=== PATIENT | female | born 1940 | race Caucasian/White ===

== ENCOUNTER 2020-04-16 17:54 | Outpatient (CLI) | payer MEDICARE | END 2020-04-16 17:55 | disposition home or self-care (01) | LOC: LAB.S 17:54 | DX: E05.90 Thyrotoxicosis, unspecified without thyrotoxic crisis or storm (principal) | CPT/HCPCS: 36415; 84443 ==

== ENCOUNTER 2020-05-15 14:25 | Outpatient (CLI) | payer MEDICARE | END 2020-05-15 14:26 | disposition home or self-care (01) | LOC: LAB.S 14:25 | DX: E05.90 Thyrotoxicosis, unspecified without thyrotoxic crisis or storm (principal) | CPT/HCPCS: 36415; 84443 ==

== ENCOUNTER 2020-06-11 18:14 | Outpatient (CLI) | payer MEDICARE | END 2020-06-11 18:15 | disposition home or self-care (01) | LOC: LAB.S 18:14 | PROVIDERS: ATTEND Family Medicine | DX: E05.90 Thyrotoxicosis, unspecified without thyrotoxic crisis or storm (principal) | CPT/HCPCS: 36415; 84443 ==

== ENCOUNTER 2020-11-08 13:55 | Outpatient (CLI) | payer MEDICARE ==
--- NOTE | 2020-11-17 08:39 | CT Report ---
PROCEDURE: CHEST WO INDICATIONS: LUNG NODULE TECHNIQUE: Noncontrast 5 mm thick sections acquired from the pulmonary apices to the posterior costophrenic angl es. 7 mm thick coronal and sagittal MIP reformats were then acquired. For radiation dose reduction, the following was used: automated exposure control, adjustment of mA and/or kV according to patient size. COMPARISON: No prior comparison. A dictation is available from a CT chest performed on 12/21/2019 FINDINGS: Image quality: Excellent. Lungs and pleura: The right middle lobe has a 5 mm nodule laterally series 4 image 175. The right lo wer lobe has 2 adjacent subpleural nodules measuring 4 mm and 6 mm series 4 image 201 and 212. A 3 mm calcified granuloma in the anterior right upper lobe is unchanged and benign. By measurement, these correspond with the nodules described on the prior CT on 12/21/2019. No acute air space opacities. No pleural effusions or pneumothorax. Central and peripheral airways are patent and normal in caliber. Mediastinum: Heart size is normal. The coronary arteries have atherosclerotic calcifications. No pe ricardial effusion. No mediastinal adenopathy by size criteria. Thoracic aorta and central pulmonar y arteries are normal in size. The thoracic aorta has atherosclerotic calcifications. Esophagus is n ormal in caliber. No hiatal hernia. Bones and chest wall: There are multilevel degenerative changes of the thoracic spine. No suspicious bony lesions. No vertebral body compression fractures. No axillary or supraclavicular adenopathy b y size criteria. The thyroid is normal in size and there are no incidental findings. Abdomen: Visualized upper abdominal solid organs and bowel loops appear normal in the absence of con trast. IMPRESSION: 1. Nodules in the right middle lobe and right lower lobe are stable compared to prior CT report on 03/2020 demonstrating one year of stability. Recommend additional follow-up CT in 12 months and if th ere is continued stability no further follow-up is indicated. 2. No acute abnormality or other significant abnormality. Reviewed by: Kenroy Ma on 11/17/2020 8:37 AM PDT Approved by: Kenroy Ma on 11/17/2020 8:37 AM PDT Station ID: [id number]
== END 2020-11-08 13:56 | disposition home or self-care (01) ==
LOC: DI 13:55
PROVIDERS: ATTEND Family Medicine
DX: R91.8 Other nonspecific abnormal finding of lung field (principal)

== ENCOUNTER 2022-11-02 08:00 | Outpatient (CLI) | payer MEDICARE ==
[2022-11-02 16:17] LABS: BASOPHILS % (AUTO) 0.7 %; EOSINOPHILS % (AUTO) 3.2 %; HCT - HEMATOCRIT 30.3 % (37.0-47.0); HGB - HEMOGLOBIN 9.2 g/dL (12.0-16.0); LYMPHOCYTES % (AUTO) 21.7 %; MEAN CORPUSCULAR HEMOGLOBIN 28.4 pg (27.0-31.0); MEAN CORPUSCULAR HGB CONC 30.4 g/dL (32.0-36.0); MEAN CORPUSCULAR VOLUME 93.5 fL (81.0-99.0); MONOCYTES % (AUTO) 9.5 %; NEUTROPHILS % (AUTO) 64.6 %; PLT - PLATELET COUNT 295 10^3/uL (130-450); RED BLOOD COUNT 3.24 10^6/uL (4.20-5.40); RED CELL DISTRIBUTION WIDTH 15.4 % (12.0-15.0); WHITE BLOOD COUNT 9.4 x10^3/uL (4.8-10.8)
[2022-11-02 16:18] LABS: ABNORMAL LYMPHS % (MANUAL) 0 %; BAND NEUTROPHILS % (MANUAL) 0 %; SLIDE REVIEW? Indicated
[2022-11-02 17:19] LABS: DIFFERENTIAL COMMENT MANUAL DIFFERENTIAL; EOSINOPHILS # (MANUAL) 0.5 10^3/uL (0-0.7); LYMPHOCYTES # (MANUAL) 1.5 10^3/uL (1.5-3.5); LYMPHOCYTES % (MANUAL) 16 %; MONOCYTES # (MANUAL) 0.7 10^3/uL (0.0-1.0); NEUTROPHILS # (MANUAL) 6.8 10^3/uL (1.5-6.6); PLATELET ESTIMATE, MANUAL NORMAL (130-450,000) (NORMAL); PLATELET MORPHOLOGY NORMAL APPEARANCE (NORMAL)
[2022-11-02 21:10] LABS: ESTIMATED AVERAGE GLUCOSE 183 mg/dL (70-100)
== END 2022-11-02 23:59 | disposition home or self-care (01) ==
LOC: LAB.R 08:00
DX: E11.22 Type 2 diabetes mellitus with diabetic chronic kidney disease (principal); N18.31 Chronic kidney disease, stage 3a; D63.1 Anemia in chronic kidney disease
CPT/HCPCS: 83036; 85025

== ENCOUNTER 2022-11-15 09:24 | Outpatient (CLI) | payer MEDICARE | END 2022-11-15 09:25 | disposition critical access hospital (66) | LOC: EMS 09:24 | DX: N93.9 Abnormal uterine and vaginal bleeding, unspecified (principal); R30.0 Dysuria | CPT/HCPCS: A0425; A0429 ==

== ENCOUNTER 2022-11-15 09:52 | Emergency (ER) | payer MEDICARE ==
--- NOTE | 2022-11-15 10:13 | ED Physician Documentation ---
History of Present Illness - Stated complaint Stated Complaint: FEMALE - Chief complaint Chief Complaint: General - History obtained from History obtained from: Patient, Family - Additonal information Additional information: The patient comes to the emergency department chief complaint of vaginal bleeding and urinary frequency. The patient lives at home with her daughter and is bedbound and the daughter states she does diaper change and clean up for the patient. The patient states that she has had urinary frequency which is not necessarily unusual for her although she has been a little more frequent than she would normally be. The patient denies abdominal pain, nausea, vomiting, or fevers. She states her pelvic area feels "warm". She has not had chills or rigors. She has not noticed any dysuria. The daughter states that when she went to change the patient's depends this morning, she noticed some bloody residue in the urine. The patient on further examination was found to blood coming from her vagina. The daughter then noticed a clot pass and was concerned so had the patient brought here. The patient apparently had a similar episode a few years ago and no cause was found for the vaginal bleeding despite extensive work-up. The patient does have a strong family history of reproductive cancer amongst her mother and sisters, so this is a concern. No other complaints at t his time. Daughter has not been noticing any bleeding in preceding days. PD PAST MEDICAL HISTORY - Present Medications Home Medications: Ambulatory Orders Medication Instructions Recorded Confirmed Aspirin [Aspirin Regimen] 81 mg PO DAILY 11/15/22 11/15/22 Bumetanide [Bumex] 1 mg PO DAILY 11/15/22 11/15/22 Losartan [Cozaar] 50 mg PO DAILY 11/15/22 11/15/22 Metoprolol Succinate 100 mg PO DAILY 11/15/22 11/15/22 Nitroglycerin [Nitrostat] 0.4 mg PO DAILY 11/15/22 11/15/22 Rosuvastatin Calcium [Crestor] 40 mg PO DAILY 11/15/22 11/15/22 Sulfamethox/Trimeth 800/160 1 each PO BID #14 tablet 11/15/22 [Bactrim Ds 800/160] metFORMIN [Glucophage] 500 mg PO BIDWM 11/15/22 11/15/22 - Allergies Allergies/Adverse Reactions: Allergies Allergy/AdvReac Type Severity Reaction Status Date / Time lisinopril Allergy Unknown Verified 11/15/22 10:00 Penicillins Allergy Unknown Verified 11/15/22 10:00 PD ED PE NORMAL - Vitals Vital signs reviewed: Yes - General General: Alert and oriented X 3, No acute distress, Well developed/nourished (Obese) - HEENT HEENT: Atraumatic, PERRL, EOMI, Moist mucous membranes - Neck Neck: Supple, no meningeal sign - Cardiac Cardiac: RRR, No murmur - Respiratory Respiratory: No respiratory distress, Clear bilaterally - Abdomen Abdomen: Soft, Non tender, Other (Obese abdomen) - Female Female : Vamp Creaser present, Other (Normal female genitalia. Patient is noted to have a trickle of blood from her vagina. Digital exam reveals no palpable masses. A clot is expressed with removal of the fingers. Speculum exam not performed secondary to hip inflexibility) - Derm Derm: Warm and dry - Extremities Extremities: No deformity - Neuro Neuro: Alert and oriented X 3 - Psych Psych: Normal mood, Normal affect Results - Vitals Vitals: Vital Signs - 24 hr 11/15/22 11/15/22 11/15/22 09:56 10:15 11:12 Temperature 36.4 C L Heart Rate 97 94 90 Respiratory 22 20 20 Rate Blood Pressure 156/69 H 128/65 140/58 H O2 Saturation 97 99 98 11/15/22 13:00 Temperature 36.5 C Heart Rate 88 Respiratory 18 Rate Blood Pressure 130/60 O2 Saturation 98 Oxygen O2 Source Room air - Labs Labs: Laboratory Tests 11/15/22 11/15/22 11/15/22 10:13 10:19 10:19 WBC 9.6 RBC 3.17 L Hgb 9.4 L Hct 29.6 L MCV 93.4 MCH 29.7 MCHC 31.8 L RDW 15.8 H Plt Count 288 MPV 8.4 Neut # (Auto) 6.9 H Lymph # (Auto) 1.5 Lipscomb # (Auto) 0.8 Eos # (Auto) 0.3 Baso # (Auto) 0.1 Absolute Nucleated RBC 0.00 Nucleated RBC % 0.0 PT 11.3 INR 1.0 Sodium Potassium Chloride Carbon Dioxide Anion Gap BUN Creatinine Estimated GFR (MDRD) Glucose Calcium Total Bilirubin AST ALT Alkaline Phosphatase Total Protein Albumin Globulin Albumin/Globulin Ratio Lipase Urine Color YELLOW Urine Clarity SL. CLOUDY Urine pH 6.0 Ur Specific [place] 1.010 Urine Protein 30 H Urine Glucose (UA) NEGATIVE Urine Ketones NEGATIVE Urine Occult Blood LARGE H Urine Nitrite POSITIVE H Urine Bilirubin NEGATIVE Urine Urobilinogen 0.2 (NORMAL) Ur Leukocyte Esterase MODERATE H Urine RBC TNTC H Urine WBC 6-10 H Ur Squamous Epith Cells RARE Squamous Urine Bacteria Moderate H Ur Microscopic Review INDICATED Urine Culture Comments INDICATED 11/15/22 10:19 WBC RBC Hgb Hct MCV MCH MCHC RDW Plt Count MPV Neut # (Auto) Lymph # (Auto) Lipscomb # (Auto) Eos # (Auto) Baso # (Auto) Absolute Nucleated RBC Nucleated RBC % PT INR Sodium 139 Potassium 4.3 Chloride 108 Carbon Dioxide 23 Anion Gap 8.0 BUN 25 H Creatinine 1.1 H Estimated GFR (MDRD) 47 L Glucose 207 H Calcium 8.8 Total Bilirubin 0.5 AST 23 ALT 20 Alkaline Phosphatase 119 Total Protein 6.9 Albumin 2.8 L Globulin 4.1 Albumin/Globulin Ratio 0.7 L Lipase 47 Urine Color Urine Clarity Urine pH Ur Specific [place] Urine Protein Urine Glucose (UA) Urine Ketones Urine Occult Blood Urine Nitrite Urine Bilirubin Urine Urobilinogen Ur Leukocyte Esterase Urine RBC Urine WBC Ur Squamous Epith Cells Urine Bacteria Ur Microscopic Review Urine Culture Comments - Rads (name of study) CT abdomen and pelvis Relevant Findings:: Final report received, See rad report (No masses or other acute findings) PD Medical Decision Making - ED course Complexity details: reviewed results, re-evaluated patient, considered di fferential, d/w patient, d/w family ED course: The patient was worked up with labs, UA and ultimately CT scan of the abdomen and pelvis. UA was positive for infection. Labs showed a hemoglobin with mild anemia but higher than last month. CT scan did not show any masses or other concerning findings to indicate malignancy. I discussed with the family and the patient that I am not really sure why she is having vaginal bleeding, although this is not very heavy right now. I have encouraged them to follow-up with gynecology for further evaluation. We have discussed the usual indications for return. Departure - Departure Disposition: 01 Home, Self Care Clinical Impression: Vaginal bleeding UTI (urinary tract infection) Qualifiers: Urinary tract infection type: acute cystitis Hematuria presence: with hematuria Qualified Code(s): N30.01 - Acute cystitis with hematuria Condition: Stable Instructions: ED Bleed Irregular Vaginal, ED UTI Cystitis Female Prescriptions: Sulfamethox/Trimeth 800/160 [Bactrim Ds 800/160] 1 each PO BID #14 tablet Comments: The urinalysis shows a urinary tract infection. You have been started on antibiotics for this today. The CT scan does not show anything concerning in terms of the vaginal bleeding and it is not exactly clear why you are bleeding. No masses were palpable on examination either. 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 Please make the next possible appointment. Please also look into the ride options you have been given. Your prescription has been electronically transmitted to the [facility] pharmacy in [place]. Please pick that up this afternoon so you can get your next dose of antibiotics. Discharge Date/Time: 11/15/22 13:16
[2022-11-15 10:24] LABS: BASOPHILS # (AUTO) 0.1 10^3/uL (0.0-0.1); BASOPHILS % (AUTO) 0.6 %; EOSINOPHILS # (AUTO) 0.3 10^3/uL (0.0-0.7); EOSINOPHILS % (AUTO) 3.4 %; HCT - HEMATOCRIT 29.6 % (37.0-47.0); HGB - HEMOGLOBIN 9.4 g/dL (12.0-16.0); LYMPHOCYTES # (AUTO) 1.5 10^3/uL (1.5-3.5); LYMPHOCYTES % (AUTO) 15.7 %; MEAN CORPUSCULAR HEMOGLOBIN 29.7 pg (27.0-31.0); MEAN CORPUSCULAR HGB CONC 31.8 g/dL (32.0-36.0); MEAN CORPUSCULAR VOLUME 93.4 fL (81.0-99.0); MEAN PLATELET VOLUME 8.4 fL (7.9-10.8); MONOCYTES # (AUTO) 0.8 10^3/uL (0.0-1.0); NEUTROPHILS # (AUTO) 6.9 10^3/uL (1.5-6.6); NEUTROPHILS % (AUTO) 71.8 %; PLT - PLATELET COUNT 288 10^3/uL (130-450); RED BLOOD COUNT 3.17 10^6/uL (4.20-5.40); RED CELL DISTRIBUTION WIDTH 15.8 % (12.0-15.0); WHITE BLOOD COUNT 9.6 x10^3/uL (4.8-10.8)
[2022-11-15 10:28] LABS: BILIRUBIN,URINE NEGATIVE (NEGATIVE); GLUCOSE, URINE (UA) NEGATIVE (NEGATIVE); KETONES,URINE (UA) NEGATIVE (NEGATIVE); LEUKOCYTE ESTERASE, URINE MODERATE (NEGATIVE); NITRITE,URINE POSITIVE (NEGATIVE); OCCULT BLOOD,URINE LARGE (NEGATIVE); PROTEIN,URINE 30 mg/dL (NEGATIVE); UROBILINOGEN,URINE 0.2 (NORMAL) E.U./dL (NORMAL)
[2022-11-15 10:35] LABS: CLARITY,URINE SL. CLOUDY (CLEAR)
[2022-11-15 10:37] LABS: ALBUMIN 2.8 g/dL (3.2-5.5); ALBUMIN/GLOBULIN RATIO 0.7 (1.0-2.2); BILIRUBIN,TOTAL 0.5 mg/dL (0.2-1.0); CALCIUM 8.8 mg/dL (8.5-10.3); CREATININE 1.1 mg/dL (0.4-1.0); POTASSIUM 4.3 mmol/L (3.5-5.0); TOTAL PROTEIN 6.9 g/dL (6.7-8.2)
[2022-11-15 10:40] LABS: BACTERIA,URINE Moderate /HPF (None Seen); RBC,URINE TNTC /HPF (0-5); SQUAMOUS EPITHELIAL CELL,UR RARE Squamous (<= Few)
[2022-11-15 10:42] LABS: PT - PROTHROMBIN TIME 11.3 secs (9.9-12.6)
--- NOTE | 2022-11-15 12:01 | CT Report ---
PROCEDURE: ABDOMEN/PELVIS W INDICATIONS: vaginal bleeding, FH ovarian/uterine CA CONTRAST: 100ml Omni 350 TECHNIQUE: After the administration of intravenous contrast, 5 mm thick sections acquired from the diaphragms to the symphysis. 5 mm thick coronal and sagittal reformats were acquired. For radiation dose reducti on, the following was used: automated exposure control, adjustment of mA and/or kV according to aysha ent size. COMPARISON: None FINDINGS: Image quality: Excellent. Lung bases and heart: Unremarkable. Liver: Mild diffuse hepatic steatosis. No focal liver mass. Gallbladder and biliary tree: Calcified gallstones. No gallbladder wall thickening. Spleen: No splenomegaly. Pancreas: No pancreatic ductal dilation. Adrenals: No adrenal nodule. Kidneys and ureters: No hydronephrosis. No renal cystic lesion which requires follow up. No solid mas s. Bowel and peritoneum: No bowel distension. No pathologic free fluid. Lymph nodes: No central or retroperitoneal adenopathy. Vessels: No infrarenal aortic aneurysm. PELVIS Reproductive organs: Unremarkable. The endometrium of the uterus appears to be thickened on CT. No ad nexal masses. There is an old benign appearing left adnexal calcification. Bladder: No abnormal wall thickening, accounting for underdistension. Pelvic lymph nodes: No pelvic adenopathy by size criteria. Bones: No aggressive osseous abnormality. Lumbar degenerative changes. Other: No significant ventral or inguinal hernia. Posterior pelvic floor relaxation with inferior loc ation of the rectoanal junction. IMPRESSION: 1. No evidence acute abdominal process. 2. No findings are suspicious for gynecological malignancy. Thin endometrial stripe. 3. Posterior pelvic floor relaxation. Reviewed by: Nav Luna MD on 11/15/2022 11:59 AM PDT Approved by: Nav Luna MD on 11/15/2022 11:59 AM PDT Station ID: [id number]
[2022-11-15] MEDS ORDERED: SULFAMETH/TRIMETH DS 800/160 MG TABLET PO STA (12:06)
[2022-11-15 13:19] VITALS: BP 130/60
--- NOTE | 2022-11-18 12:51 | ED Physician Documentation ---
ED Addendum - Addendum Addendum: 11/18/22 12:50 Cultures reviewed, she is on Bactrim which the E. coli is sensitive to and a brief Internet search suggests that the second organism should be sensitive to as well. No changes.
== END 2022-11-15 13:16 | disposition home or self-care (01) ==
LOC: EDUNIT# → ED 09:52
DX: N30.01 Acute cystitis with hematuria (principal); B96.20 Unspecified Escherichia coli [E. coli] as the cause of diseases classified elsewhere; N93.9 Abnormal uterine and vaginal bleeding, unspecified
CPT/HCPCS: 36415; 51701; 74177; 80053; 81001; 83690; 85025; 85610; 87077; 87086; 87181; 99283; 99284; A9270; Q9967; 81003

== ENCOUNTER 2022-11-15 13:20 | Outpatient (CLI) | payer MEDICARE | END 2022-11-15 23:59 | disposition home or self-care (01) | LOC: EMS 13:20 | PROVIDERS: ATTEND Emergency Medicine | DX: N39.0 Urinary tract infection, site not specified (principal); Z74.01 Bed confinement status | CPT/HCPCS: A0425; A0428 ==

== ENCOUNTER 2022-11-21 23:26 | Outpatient (CLI) | payer MEDICARE | END 2022-11-21 23:59 | disposition critical access hospital (66) | LOC: EMS 23:26 | DX: R11.2 Nausea with vomiting, unspecified (principal); R19.7 Diarrhea, unspecified; R53.1 Weakness; Z74.01 Bed confinement status | CPT/HCPCS: A0425; A0429 ==

== ENCOUNTER 2022-11-21 23:53 | Emergency (ER) | payer MEDICARE ==
[2022-11-21] MEDS ORDERED: SODIUM CHLORIDE 0.9% 1,000 ML IV STA (23:58)
[2022-11-22 00:25] LABS: BASOPHILS % (AUTO) 0.3 %; EOSINOPHILS % (AUTO) 0.1 %; HCT - HEMATOCRIT 29.6 % (37.0-47.0); HGB - HEMOGLOBIN 8.2 g/dL (12.0-16.0); LYMPHOCYTES % (AUTO) 17.8 %; MEAN CORPUSCULAR HEMOGLOBIN 28.5 pg (27.0-31.0); MEAN CORPUSCULAR HGB CONC 27.7 g/dL (32.0-36.0); MEAN CORPUSCULAR VOLUME 102.8 fL (81.0-99.0); MEAN PLATELET VOLUME 8.6 fL (7.9-10.8); MONOCYTES % (AUTO) 7.1 %; NEUTROPHILS % (AUTO) 71.3 %; PLT - PLATELET COUNT 401 10^3/uL (130-450); RED BLOOD COUNT 2.88 10^6/uL (4.20-5.40); RED CELL DISTRIBUTION WIDTH 15.8 % (12.0-15.0); WHITE BLOOD COUNT 24.9 x10^3/uL (4.8-10.8)
[2022-11-22 00:29] LABS: BILIRUBIN,URINE NEGATIVE (NEGATIVE); GLUCOSE, URINE (UA) NEGATIVE (NEGATIVE); KETONES,URINE (UA) NEGATIVE (NEGATIVE); LEUKOCYTE ESTERASE, URINE NEGATIVE (NEGATIVE); NITRITE,URINE NEGATIVE (NEGATIVE); OCCULT BLOOD,URINE SMALL (NEGATIVE); PROTEIN,URINE 100 mg/dL (NEGATIVE); UROBILINOGEN,URINE 0.2 (NORMAL) E.U./dL (NORMAL)
[2022-11-22 00:30] LABS: CLARITY,URINE SL. CLOUDY (CLEAR)
[2022-11-22 00:30] LABS: ABNORMAL LYMPHS % (MANUAL) 0 %
[2022-11-22] MEDS ORDERED: PIPERACILLIN/TAZOBACTAM 3.375 GM in SODIUM CHLORIDE 0.9% MINIBAG 100 ML IV STA (00:37)
[2022-11-22 00:44] LABS: BACTERIA,URINE Rare /HPF (None Seen); RBC,URINE 0-5 /HPF (0-5); SQUAMOUS EPITHELIAL CELL,UR RARE Squamous (<= Few); WBC,URINE 0-3 /HPF (0-5)
[2022-11-22] MEDS ORDERED: iohexoL-300 100 ML VIAL ONE (00:44)
[2022-11-22 00:45] LABS: AMORPHOUS SEDIMENT,UR Moderate /LPF; CASTS, URINE 3-5 Course Granular /LPF
--- NOTE | 2022-11-22 00:49 | ED Physician Documentation ---
History of Present Illness - Stated complaint Stated Complaint: N/V/D - Chief complaint Chief Complaint: Abd Pain - History obtained from History obtained from: Patient, Family (daughter) - Additonal information Additional information: 82-year-old woman presented to the ED with nausea, vomiting and diarrhea for the past 2 days. Patient was seen on 11/15 for UTI and prescribed Bactrim. Patient is bedbound at baseline due to prior knee injury. She has a history of diabetes, cardiac stent at [facility] in 2009. further history limited by patient acuity Review of Systems Unable to obtain: Other (unable to obtain 2/2 patient acuity) PD PAST MEDICAL HISTORY - Present Medications Home Medications: Ambulatory Orders Medication Instructions Recorded Confirmed Aspirin [Aspirin Regimen] 81 mg PO DAILY 11/15/22 11/15/22 Bumetanide [Bumex] 1 mg PO DAILY 11/15/22 11/15/22 Losartan [Cozaar] 50 mg PO DAILY 11/15/22 11/15/22 Metoprolol Succinate 100 mg PO DAILY 11/15/22 11/15/22 Nitroglycerin [Nitrostat] 0.4 mg PO DAILY 11/15/22 11/15/22 Rosuvastatin Calcium [Crestor] 40 mg PO DAILY 11/15/22 11/15/22 Sulfamethox/Trimeth 800/160 1 each PO BID #14 tablet 11/15/22 [Bactrim Ds 800/160] metFORMIN [Glucophage] 500 mg PO BIDWM 11/15/22 11/15/22 - Allergies Allergies/Adverse Reactions: Allergies Allergy/AdvReac Type Severity Reaction Status Date / Time lisinopril Allergy Unknown Verified 11/15/22 10:00 Penicillins Allergy Unknown Verified 11/15/22 10:00 PD ED PE NORMAL - Vitals Vital signs reviewed: Yes - General General: Alert and oriented X 3, Other (uncomfortable appearing, visibly SOA) - HEENT HEENT: Atraumatic, PERRL, EOMI - Neck Neck: Supple, no meningeal sign - Cardiac Cardiac: RRR - Respiratory Respiratory: Other (BL diminished breath sounds) - Abdomen Abdomen: Non tender, Non distended - Derm Derm: Other (mottled extremities) Results - Vitals Vitals: Vital Signs - 24 hr 11/22/22 11/22/22 11/22/22 00:00 00:06 00:30 Temperature 36.4 C L Heart Rate 87 88 86 Respiratory 31 H 18 32 H Rate Blood Pressure 144/49 H 144/49 H 115/33 L O2 Saturation 95 If not protocol 2 : Oxygen Flow, liters/minute 11/22/22 11/22/22 11/22/22 00:41 01:00 01:13 Temperature Heart Rate 84 79 Respiratory 20 Rate Blood Pressure 123/38 L 123/38 L 102/76 O2 Saturation 100 100 If not protocol 84 : Oxygen Flow, liters/minute 11/22/22 11/22/22 11/22/22 01:55 02:24 02:29 Temperature Heart Rate 86 85 85 Respiratory 28 H 27 H 29 H Rate Blood Pressure 93/74 112/95 H O2 Saturation 100 100 If not protocol 6 15 15 : Oxygen Flow, liters/minute 11/22/22 11/22/22 11/22/22 02:41 02:47 02:52 Temperature Heart Rate 88 86 85 Respiratory 24 22 16 Rate Blood Pressure 76/31 L 75/30 L 60/40 L O2 Saturation 15 L 100 100 If not protocol : Oxygen Flow, liters/minute 11/22/22 11/22/22 11/22/22 02:57 03:05 03:11 Temperature Heart Rate 85 86 85 Respiratory 22 26 H 27 H Rate Blood Pressure 91/26 L 82/32 L 76/39 L O2 Saturation 97 95 95 If not protocol 5 5 : Oxygen Flow, liters/minute 11/22/22 11/22/22 11/22/22 03:39 04:00 04:09 Temperature Heart Rate 88 92 88 Respiratory 27 H 27 H 25 H Rate Blood Pressure 95/39 L 108/39 L 113/42 L O2 Saturation 97 97 97 If not protocol 5 5 5 : Oxygen Flow, liters/minute 11/22/22 11/22/22 11/22/22 04:30 05:00 05:30 Temperature Heart Rate 92 92 88 Respiratory 19 22 16 Rate Blood Pressure 121/46 L 119/46 L 105/41 L O2 Saturation 98 99 99 If not protocol 5 5 5 : Oxygen Flow, liters/minute 11/22/22 11/22/22 11/22/22 05:47 06:00 06:30 Temperature Heart Rate 87 88 75 Respiratory 15 20 23 Rate Blood Pressure 105/39 L 93/36 L 59/47 L O2 Saturation 100 100 95 If not protocol 5 5 5 : Oxygen Flow, liters/minute Oxygen O2 Source Nasal cannula - EKG (time done) 0028 EKG releavant findings:: EKG personally interpreted by author of this note. Relevant findings are: Rate: Rate (enter#) (84) Rhythm: NSR - Labs Labs: Laboratory Tests 11/22/22 11/22/22 11/22/22 00:08 00:08 00:08 WBC 24.9 H RBC 2.88 L Hgb 8.2 L Hct 29.6 L MCV 102.8 H MCH 28.5 MCHC 27.7 L RDW 15.8 H Plt Count 401 MPV 8.6 Neut # (Auto) Not Reportable Lymph # (Auto) Not Reportable [place] # (Auto) Not Reportable Eos # (Auto) Not Reportable Baso # (Auto) Not Reportable Absolute Nucleated RBC Not Reportable Total Counted 100 Band Neuts % (Manual) 1 Abnorm Lymph % (Manual) 0 Myelocytes % 1 H Nucleated RBC % Not Reportable Neutrophils # (Manual) 18.4 H Lymphocytes # (Manual) 4.0 H Monocytes # (Manual) 2.2 H Eosinophils # (Manual) 0.0 Basophils # (Manual) 0.0 Differential Comment MANUAL DIFFERENTIAL WBC Morphology NORMAL APPEARANCE Platelet Estimate NORMAL (130-450,000) Platelet Morphology NORMAL APPEARANCE RBC Morph Micro Appear NORMAL APPEARANCE PT INR APTT Bld Gas Analysis Time Sample Site ABG pH ABG pCO2 ABG pO2 ABG HCO3 ABG Total CO2 ABG O2 Saturation ABG Base Excess Ahsan Test O2 Delivery Device FiO2 Sodium 130 L Potassium 8.5 H* Chloride 103 Carbon Dioxide < 6 L* Anion Gap 21.0 H BUN 60 H Creatinine 3.0 H Estimated GFR (MDRD) 15 L Glucose 184 H Lactic Acid Calcium 9.2 Total Bilirubin 0.5 AST 29 ALT 20 Alkaline Phosphatase 109 Troponin I High Sens B-Natriuretic Peptide 889 H Total Protein 7.0 Albumin 3.0 L Globulin 4.0 Albumin/Globulin Ratio 0.8 L Lipase 41 Urine Color Urine Clarity Urine pH Ur Specific Solon Urine Protein Urine Glucose (UA) Urine Ketones Urine Occult Blood Urine Nitrite Urine Bilirubin Urine Urobilinogen Ur Leukocyte Esterase Urine RBC Urine WBC Ur Squamous Epith Cells Amorphous Sediment Urine Bacteria Urine Casts Ur Microscopic Review Urine Culture Comments SARS-CoV-2 (PCR) 11/22/22 11/22/22 11/22/22 00:08 00:22 01:25 WBC RBC Hgb Hct MCV MCH MCHC RDW Plt Count MPV Neut # (Auto) Lymph # (Auto) [place] # (Auto) Eos # (Auto) Baso # (Auto) Absolute Nucleated RBC Total Counted Band Neuts % (Manual) Abnorm Lymph % (Manual) Myelocytes % Nucleated RBC % Neutrophils # (Manual) Lymphocytes # (Manual) Monocytes # (Manual) Eosinophils # (Manual) Basophils # (Manual) Differential Comment WBC Morphology Platelet Estimate Platelet Morphology RBC Morph Micro Appear PT 12.9 H INR 1.2 APTT 30.7 Bld Gas Analysis Time 0133 Sample Site RIGHT RADIAL ABG pH 6.87 L* ABG pCO2 34 ABG pO2 261 H* ABG HCO3 6.0 L ABG Total CO2 7.1 L* ABG O2 Saturation 99 H ABG Base Excess -25.5 L Ahsan Test POSITIVE O2 Delivery Device NON REBREATHER MASK FiO2 100.00 Sodium Potassium Chloride Carbon Dioxide Anion Gap BUN Creatinine Estimated GFR (MDRD) Glucose Lactic Acid Calcium Total Bilirubin AST ALT Alkaline Phosphatase Troponin I High Sens B-Natriuretic Peptide Total Protein Albumin Globulin Albumin/Globulin Ratio Lipase Urine Color YELLOW Urine Clarity SL. CLOUDY Urine pH 5.0 Ur Specific Solon >=1.030 H Urine Protein 100 H Urine Glucose (UA) NEGATIVE Urine Ketones NEGATIVE Urine Occult Blood SMALL H Urine Nitrite NEGATIVE Urine Bilirubin NEGATIVE Urine Urobilinogen 0.2 (NORMAL) Ur Leukocyte Esterase NEGATIVE Urine RBC 0-5 Urine WBC 0-3 Ur Squamous Epith Cells RARE Squamous Amorphous Sediment Moderate Urine Bacteria Rare Urine Casts 3-5 Course Granular Ur Microscopic Review INDICATED Urine Culture Comments NOT INDICATED SARS-CoV-2 (PCR) 11/22/22 11/22/22 11/22/22 01:45 01:45 01:50 WBC RBC Hgb Hct MCV MCH MCHC RDW Plt Count MPV Neut # (Auto) Lymph # (Auto) [place] # (Auto) Eos # (Auto) Baso # (Auto) Absolute Nucleated RBC Total Counted Band Neuts % (Manual) Abnorm Lymph % (Manual) Myelocytes % Nucleated RBC % Neutrophils # (Manual) Lymphocytes # (Manual) Monocytes # (Manual) Eosinophils # (Manual) Basophils # (Manual) Differential Comment WBC Morphology Platelet Estimate Platelet Morphology RBC Morph Micro Appear PT INR APTT Bld Gas Analysis Time Sample Site ABG pH ABG pCO2 ABG pO2 ABG HCO3 ABG Total CO2 ABG O2 Saturation ABG Base Excess Ahsan Test O2 Delivery Device FiO2 Sodium Potassium 8.3 H* Chloride Carbon Dioxide Anion Gap BUN Creatinine Estimated GFR (MDRD) Glucose Lactic Acid > 10.0 H* Calcium Total Bilirubin AST ALT Alkaline Phosphatase Troponin I High Sens 13.7 B-Natriuretic Peptide Total Protein Albumin Globulin Albumin/Globulin Ratio Lipase Urine Color Urine Clarity Urine pH Ur Specific Solon Urine Protein Urine Glucose (UA) Urine Ketones Urine Occult Blood Urine Nitrite Urine Bilirubin Urine Urobilinogen Ur Leukocyte Esterase Urine RBC Urine WBC Ur Squamous Epith Cells Amorphous Sediment Urine Bacteria Urine Casts Ur Microscopic Review Urine Culture Comments SARS-CoV-2 (PCR) 11/22/22 02:34 WBC RBC Hgb Hct MCV MCH MCHC RDW Plt Count MPV Neut # (Auto) Lymph # (Auto) [place] # (Auto) Eos # (Auto) Baso # (Auto) Absolute Nucleated RBC Total Counted Band Neuts % (Manual) Abnorm Lymph % (Manual) Myelocytes % Nucleated RBC % Neutrophils # (Manual) Lymphocytes # (Manual) Monocytes # (Manual) Eosinophils # (Manual) Basophils # (Manual) Differential Comment WBC Morphology Platelet Estimate Platelet Morphology RBC Morph Micro Appear PT INR APTT Bld Gas Analysis Time Sample Site ABG pH ABG pCO2 ABG pO2 ABG HCO3 ABG Total CO2 ABG O2 Saturation ABG Base Excess Ahsan Test O2 Delivery Device FiO2 Sodium Potassium Chloride Carbon Dioxide Anion Gap BUN Creatinine Estimated GFR (MDRD) Glucose Lactic Acid Calcium Total Bilirubin AST ALT Alkaline Phosphatase Troponin I High Sens B-Natriuretic Peptide Total Protein Albumin Globulin Albumin/Globulin Ratio Lipase Urine Color Urine Clarity Urine pH Ur Specific Solon Urine Protein Urine Glucose (UA) Urine Ketones Urine Occult Blood Urine Nitrite Urine Bilirubin Urine Urobilinogen Ur Leukocyte Esterase Urine RBC Urine WBC Ur Squamous Epith Cells Amorphous Sediment Urine Bacteria Urine Casts Ur Microscopic Review Urine Culture Comments SARS-CoV-2 (PCR) NOT DETECTED Procedures - Central Line - Major Central Line Preparation: Consent Obtained, Time out completed, Ultrasound used, Sterile prep and drape Central line location: Right IJ Central line type: Triple lumen Central line aftercare: Chlorhexidine disc placed, Secured, Placement confirmed, No pneumothorax, No complications, Pt tolerated well PD Medical Decision Making - ED course ED course: 82-year-old woman presents with severe medical illness, SOA, tachypneic, hypotensive, with severe leukocytosis, lactate >10, severe metabolic acidosis and severe acute renal failure on labwork likely 2/2 septic shock from pneumonia or pyelonephritis. 2:20am - Discussed very poor prognosis with the daughter and after conversation with her family members they are making her DNR/DNI. 3am - d/w Dr. Baltazar, telehealth for admission. He went over goals of care and asked if the family wanted dialysis to which they said no after discussing she likely won't survive transport. He also asked if the family would like him to "try to restart her heart" if she loses pulses and there was some confusion about this. I then spoke on the phone with brother Tim and sister at the bedside to clarify and confirmed again that we would try to keep her alive with noninvasive means but reestablished her POLST we filled out earlier this evening which makes her DNR/DNI with selective interventions only. Dr. Baltazar discussed with me that since our hospital doesn't have kayexalate he would like to hold off on admission. I will endorse the patient to my daytime ED MD at 7am shift change. 4am - d/w patient's two sons and daughter in law who all are agreeable to plan to keep her DNR/DNI with selective interventions until their other family members arrive shortly. 5am- all 5 of the patient's children are now at bedside. she is on 2 pressors, with bicarb drip and completed vanc/zosyn treatment. discussed our limitations as a critical access hospital, inability to provide specialized renal care including kayexalate and dialysis. Upon addressing her POLST they requested to make her DNR/DNI with comfort measures. Plan to initiate comfort oriented care including morphine for air hunger, removing pressors and drips per family wishes. 6:58am - TOD - Critical Care Time(min): 90 Time Includes: Direct patient care, Review records, Reassess patient, Document care, Coordinate care, Medical consult, Family consult for tx dec Data interpretation: Labs, Pulse ox, ABG, CXR Procedures included in critical care time: Peripheral IV, Blood draw Procedures excluded from critical care time: Central IV Departure - Departure Disposition: 20 Clinical Impression: LUPE (acute kidney injury), Leukocytosis, Hyperkalemia, Shortness of breath Sepsis Qualifiers: Sepsis type: sepsis due to unspecified organism Sepsis acute organ dysfunction status: with acute organ dysfunction Severe sepsis acute organ dysfunction type: acute renal failure Acute renal failure type: unspecified Severe sepsis shock status: with septic shock Qualified Code(s): A41.9 - Sepsis, unspecified organism Condition: Critical
[2022-11-22 00:57] LABS: BAND NEUTROPHILS % (MANUAL) 1 %; DIFFERENTIAL COMMENT MANUAL DIFFERENTIAL; LYMPHOCYTES % (MANUAL) 16 %; MONOCYTES # (MANUAL) 2.2 10^3/uL (0.0-1.0); MYELOCYTES % (MANUAL) 1 %; NEUTROPHILS # (MANUAL) 18.4 10^3/uL (1.5-6.6); PLATELET ESTIMATE, MANUAL NORMAL (130-450,000) (NORMAL); PLATELET MORPHOLOGY NORMAL APPEARANCE (NORMAL); RBC MORPHOLOGY (MULTIPLE) NORMAL APPEARANCE (NORMAL); WBC MORPHOLOGY (MULTIPLE) NORMAL APPEARANCE (NORMAL)
[2022-11-22 00:58] LABS: ALBUMIN/GLOBULIN RATIO 0.8 (1.0-2.2); ALKALINE PHOSPHATASE 109 IU/L (42-121); ALT ALANINE AMINOTRANSFERASE 20 IU/L (10-60); AST ASPARTATE AMINOTRANSFERASE 29 IU/L (10-42); BILIRUBIN,TOTAL 0.5 mg/dL (0.2-1.0); BUN - BLOOD UREA NITROGEN 60 mg/dL (6-20); CALCIUM 9.2 mg/dL (8.5-10.3); CHLORIDE 103 mmol/L (101-111); GFR - MDRD 15 (>89); GLUCOSE 184 mg/dL (70-100); LIPASE 41 U/L (22-51); SODIUM 130 mmol/L (135-145)
[2022-11-22 01:02] LABS: CARBON DIOXIDE - CO2 < 6 mmol/L (21-32); POTASSIUM 8.5 mmol/L (3.5-5.0)
[2022-11-22] MEDS ORDERED: SODIUM BICARBONATE ABBOJECT 50 MEQ/50 ML SYRINGE IVP STA ×2 (01:03→03:02)
[2022-11-22] MEDS ORDERED: CALCIUM GLUCONATE IN NS 0.9% 2,000 MG/100 ML BAG IV STA (01:03)
[2022-11-22] MEDS ORDERED: iohexoL-300 100 ML VIAL IVP ONE (01:31)
[2022-11-22 01:33] LABS: ABG PCO2 34 mmHg (34-45)
[2022-11-22 01:34] LABS: ABG BASE EXCESS -25.5 mmol/L (-2.0-3.0); ABG OXYGEN SATURATION 99 % (94-98)
[2022-11-22 01:35] LABS: ABG PH 6.87 (7.35-7.45); ABG PO2 261 mmHg (80-100); ABG TCO2 7.1 MMOL/L (21.0-29.0); ALLEN TEST POSITIVE
[2022-11-22] MEDS ORDERED: SODIUM BICARBONATE 100 MEQ in DEXTROSE 5% 1,000 ML IV STA (01:40)
[2022-11-22] MEDS ORDERED: SODIUM BICARBONATE ABBOJECT 50 MEQ/50 ML SYRINGE ONE (01:42)
[2022-11-22] MEDS ORDERED: ALBUTEROL NEB 2.5 MG/3 ML INH STA (01:51)
[2022-11-22] MEDS ORDERED: SODIUM CHLORIDE 0.9% 1,000 ML IV STA ×2 (01:53→02:14)
--- NOTE | 2022-11-22 01:54 | CT Report ---
PROCEDURE: ANGIO CHEST W/WO INDICATIONS: soa, n/v, diaphoresis, mottled extremities CONTRAST: Omni 300 100ml TECHNIQUE: After the administration of intravenous contrast, 2 mm axial images were acquired from the pulmonary apices to the posterior costophrenic angles during the arterial phase. In addition, 1 mm lung kernel and 5 mm soft tissue kernel reconstructions were performed. 3-dimensional coronal oblique maximum int ensity projection (MIP) reformats, 8 mm axial MIP, and 5 mm coronal and sagittal MPR reformats were t hen performed through the thorax. For radiation dose reduction, the following was used: automated exp osure control, adjustment of mA and/or kV according to patient size. COMPARISON: Chest CT 11/08/2020 FINDINGS: Image quality: Excellent. Pulmonary arteries: Pulmonary arteries are normal in size, and demonstrate no intraluminal filling d efects to suggest central pulmonary embolism. Lower Neck: No lymphadenopathy by size criteria. Thyroid: Visualized thyroid demonstrates no discrete nodules. Axillae: No lymphadenopathy by size criteria. Chest Wall: Unremarkable. Bones: Visualized osseous structures demonstrate no suspicious lesions. Lungs and Airways: There is mild dependent atelectasis as well as mild consolidation inferiorly in t he lower lobes. There is a right middle lobe pulmonary nodule measuring up to 0.4 cm on series 15 corby ge 77 which appears similar to the prior CT. The trachea and central airways are patent. Pleura: No pneumothorax or pleural effusions. Heart: Heart size is normal. No pericardial effusion. Thoracic Vessels: The thoracic aorta is normal in size. Mediastinum and Mónica: No lymphadenopathy by size criteria. Esophagus: No wall thickening. No hiatal hernia. Abdomen: Visualized upper abdominal solid organs appear normal in the early arterial phase of enhanc ement. IMPRESSION: 1. No evidence of pulmonary embolism. 2. Mild consolidation inferiorly in the lower lobes. Pneumonia or sequelae of aspiration are in the d ifferential as well as atelectasis. Reviewed by: Juancarlos Haney MD on 11/22/2022 1:53 AM PDT Approved by: Juancarlos Haney MD on 11/22/2022 1:53 AM PDT Station ID: [id number]
[2022-11-22] MEDS ORDERED: INSULIN REGULAR HUMAN 300 UNIT/3 ML VIAL IVP STA (01:57)
[2022-11-22] MEDS ORDERED: DEXTROSE 50% ABBOJECT 25 GM/50 ML SYRINGE IVP STA (01:57)
[2022-11-22] MEDS ORDERED: SODIUM BICARBONATE 8.4% 50 MEQ/50 ML VIAL ONE (01:58)
[2022-11-22] MEDS ORDERED: ETOMIDATE 40 MG/20 ML VIAL IVP STA (02:00)
[2022-11-22] MEDS ORDERED: ROCURONIUM 50 MG/5 ML VIAL IVP STA (02:00)
[2022-11-22] MEDS ORDERED: NOREPINEPHRINE/D5W 8 MG/250 ML BAG IV SCH (02:00)
--- NOTE | 2022-11-22 02:01 | CT Report ---
PROCEDURE: ABDOMEN/PELVIS W INDICATIONS: n/v/d CONTRAST: Omni 300 100ml TECHNIQUE: After the administration of intravenous contrast, 5 mm thick sections acquired from the diaphragms to the symphysis. 5 mm thick coronal and sagittal reformats were acquired. For radiation dose reducti on, the following was used: automated exposure control, adjustment of mA and/or kV according to aysha ent size. COMPARISON: Concurrent CTA of the thorax. CT abdomen pelvis 11/15/2022. FINDINGS: Image quality: There is mild motion artifact. Lung bases:There is atelectasis in the visualized lung bases as well as mild consolidation in the lo wer lobes inferiorly. There is a 0.4 cm pulmonary nodule within the visualized right middle lobe on s eries 13 image 21. Heart: Heart is normal in size. ABDOMEN: Liver: No mass lesion. Gallbladder:There are calcified gallstones are demonstrated within a nondistended gallbladder. No de finite wall thickening or pericholecystic fluid given the nondistention. Biliary ducts: No biliary ductal dilatation. Pancreas: Unremarkable. Spleen: Normal in size. Adrenal Glands: No adrenal nodules. Kidneys and Ureters: No hydronephrosis. Stomach and Bowel: Stomach, small bowel loops, and colon are normal in caliber and wall thickness. T he appendix is normal. There are a few colonic diverticula without acute diverticulitis. Peritoneum: No abnormal intraperitoneal fluid. No free air. Ventral Wall: No hernia. Abdominal Nodes: No retroperitoneal or mesenteric adenopathy by size criteria. Vessels: Aorta and inferior vena cava are normal in size. PELVIS: Pelvic Organs: Unremarkable. Bladder:The urinary bladder is partially distended. Pelvic Nodes: No enlarged lymph nodes. Miscellaneous: No inguinal hernias. Bones: Visualized osseous structures demonstrate no suspicious lesions. IMPRESSION: 1. No evidence of bowel obstruction 2. No evidence of appendicitis. 3. Cholelithiasis without CT evidence of acute cholecystitis. 4. Mild consolidation within the visualized lung bases is nonspecific. Recommend correlation with rep ort from concurrent CT of the thorax. Reviewed by: Juancarlos Fan MD on 11/22/2022 2:00 AM PDT Approved by: Juancarlos Fan MD on 11/22/2022 2:00 AM PDT Station ID: [id number]
[2022-11-22] MEDS ORDERED: DEXTROSE 5% IV STA (02:03)
[2022-11-22] MEDS ORDERED: SODIUM BICARBONATE IV STA (02:03)
[2022-11-22] MEDS ORDERED: DEXTROSE 5% 1,000 ML IV ONE (02:09)
--- NOTE | 2022-11-22 02:22 | XRAY Report ---
PROCEDURE: Chest for Line Placement INDICATIONS: CENTERAL LINE PLACEMENT TECHNIQUE: One view of the chest was acquired. COMPARISON: Concurrent CT angiogram of the chest. FINDINGS: Surgical changes and devices: There is a right internal jugular catheter with the tip in the region of the cavoatrial junction. Lungs and pleura: No definite pneumothorax, with evaluation limited by supine technique. There are a re patchy bibasilar opacities consistent with atelectasis as well as mild consolidation inferiorly as seen on the CT. There is pulmonary vascular prominence suggestive of mild edema. Mediastinum: Mediastinal contours appear normal given technique. Heart size is also normal. Bones and chest wall: No suspicious bony lesions. Overlying soft tissues appear unremarkable. IMPRESSION: 1. New internal jugular catheter extends to the region of the cervical junction. 2. No definite pneumothorax, with evaluation limited by supine technique. 3. Mild pulmonary edema with bibasilar atelectasis and consolidation as seen on concurrent CT. Reviewed by: Juancarlos Haney MD on 11/22/2022 2:21 AM PDT Approved by: Juancarlos Haney MD on 11/22/2022 2:21 AM PDT Station ID: [id number]
[2022-11-22] MEDS ORDERED: VANCOMYCIN INJ 1.25 GM in SODIUM CHLORIDE 0.9% 500 ML IV STA (02:32)
[2022-11-22] MEDS ORDERED: VANCOMYCIN 1 GM VIAL ONE (02:51)
[2022-11-22 03:04] LABS: INR 1.2 (0.8-1.2); PT - PROTHROMBIN TIME 12.9 secs (9.9-12.6)
[2022-11-22] MEDS ORDERED: ACETAMINOPHEN 325 MG TABLET PO PRN (03:08)
[2022-11-22] MEDS ORDERED: SODIUM CHLORIDE FLUSH 0.9% 10 ML SYRINGE IVP PRN (03:08)
[2022-11-22] MEDS ORDERED: CALCIUM CHLORIDE ABBOJECT 1000MG/10 ML SYRINGE IVP STA (03:08)
[2022-11-22] MEDS ORDERED: ONDANSETRON 4 MG/2 ML VIAL IVP PRN (03:08)
[2022-11-22 03:11] LABS: PARTIAL THROMBOPLASTIN TIME 30.7 secs (24.9-33.3)
[2022-11-22] MEDS ORDERED: VASOPRESSIN 20 UNIT in DEXTROSE 5% 99 ML IV STA (03:21)
[2022-11-22] MEDS ORDERED: cefTRIAXone 2 GM in SODIUM CHLORIDE 0.9% MINIBAG 100 ML IV SCH (03:29)
[2022-11-22] MEDS ORDERED: DOXYCYCLINE INJ 100 MG in SODIUM CHLORIDE 0.9% MINIBAG 100 ML IV SCH (03:29)
[2022-11-22] MEDS ORDERED: VASOPRESSIN 20 UNIT/ML VIAL ONE (03:30)
--- NOTE | 2022-11-22 03:43 | PROVIDER PROGRESS NOTE ---
Supervisor Drapery Hanging Note - Supervisor Drapery Hanging Note Supervisor Drapery Hanging Note: 82YOF recent UTI on Bactrim p/w acute renal failure and hyperkalemia and presumed sepsis. patient in the ED received CTA chest. central line and started on pressors. spoke to RN regarding no Kayexalate in the formulary and to HOLD admission. obtained pharmacy number and called offsite pharmacy to inquire about Kayexalate for patient STAT. awaiting back. concerned with ARF + hyperkalemia 8.5 + iv contast that patient kidney failure will worsen and hyperkalemia will be difficult to manage without dialysis. Spoke with son and daughter with RNs and ED physician at bedside and expressed grave concern about the Hyperkalemia. Ultimately, son and daughter expressed desire to try medication route to address Hyperkalemia. Code status clearly expressed with son and daughter to be FULL CODE. udpate: spoke with offsite pharmacy [facility] and there is not Kayexalate on formulary. will call ED staff and discussed the options. unless comfort care, patient should be transfer. cancelling admission. Adriana Baltazar DO Internal Medicine [employer] Supervisor Drapery Hanging
--- NOTE | 2022-11-22 03:59 | HISTORY & PHYSICAL EXAMINATION ---
Chief Complaint - Chief Complaint Chief Complaint: n/v/d History of Present Illness - Admitted From Admitted From:: consult in the ED - History Obtained From Records Reviewed: ED History obtained from: ED staff, RN, and daughter at bedside Exam Limitations: tele medicine - History of Present Illness HPI Comment/Other: 82YOF c recent UTI on Bactrim presents with n/v/d x 2 days. She was recently in the ED for UTI 11/15 and treated with Bactrim. She was noted to be altered and not appropriately following commands or responding appropriately. Patient urgently noted to be hypotensive and septic. Even more concerning she has acute renal faiilure creat 3.0 and potassium 8.5. She is severe metabolic acidotic. Patient received CTA chest to r/o PE. Daughter is at bedside. Case d/w ED staff and daughter and son. Noted facility does not have Nephrology and not dialysis. Discussed options and patient's severe state. Son and daughter understood risk of arrhythmia but opting to try to manage at [facility]. As admission orders were being placed, tele hospitalist learned that [facility] does not have Kayexalate to treat hyperkalemia. Finding was confirmed with offsite Pharmacy [facility]. Case d/w ED staff and log feeder. Patient should be comfort care and on med surg if family wish to stay at [facility] otherwise transfer is strongly recommended. ED staff will d/w family. History - Past Medical History Cardiovascular: reports: Congestive heart failure, Hypertension, High cholesterol, Coronary artery disease Endocrine/Autoimmune: reports: Type 2 diabetes Meds/Allgy - Home Medications Home Medications: Ambulatory Orders Medication Instructions Recorded Confirmed Aspirin [Aspirin Regimen] 81 mg PO DAILY 11/15/22 11/15/22 Bumetanide [Bumex] 1 mg PO DAILY 11/15/22 11/15/22 Losartan [Cozaar] 50 mg PO DAILY 11/15/22 11/15/22 Metoprolol Succinate 100 mg PO DAILY 11/15/22 11/15/22 Nitroglycerin [Nitrostat] 0.4 mg PO DAILY 11/15/22 11/15/22 Rosuvastatin Calcium [Crestor] 40 mg PO DAILY 11/15/22 11/15/22 Sulfamethox/Trimeth 800/160 1 each PO BID #14 tablet 11/15/22 [Bactrim Ds 800/160] metFORMIN [Glucophage] 500 mg PO BIDWM 11/15/22 11/15/22 - Allergies Allergies/Adverse Reactions: Allergies Allergy/AdvReac Type Severity Reaction Status Date / Time lisinopril Allergy Unknown Verified 11/15/22 10:00 Penicillins Allergy Unknown Verified 11/15/22 10:00 Review of Systems - Other Findings Other Findings: patient altered and ROS is limited. Exam - Vital Signs Reviewed Vital Signs: Yes Vital Signs: Vital Signs x48h Temp Pulse Resp BP Pulse Ox O2 Flow Rate 11/22/22 03:39 88 27 H 95/39 L 97 5 11/22/22 03:11 85 27 H 76/39 L 95 5 11/22/22 03:05 86 26 H 82/32 L 95 5 11/22/22 02:57 85 22 91/26 L 97 11/22/22 02:52 85 16 60/40 L 100 11/22/22 02:47 86 22 75/30 L 100 11/22/22 02:41 88 24 76/31 L 15 L 11/22/22 02:29 85 29 H 112/95 H 100 15 11/22/22 02:24 85 27 H 93/74 100 15 11/22/22 01:55 86 28 H 6 11/22/22 01:13 79 102/76 100 11/22/22 01:00 123/38 L 11/22/22 00:41 84 20 123/38 L 100 84 11/22/22 00:30 86 32 H 115/33 L 2 11/22/22 00:06 36.4 C L 88 18 144/49 H 95 11/22/22 00:00 87 31 H 144/49 H - Physical Exam General Appearance: positive: Alert (not oriented and not following commands and not responding appropriately.) Eyes Bilateral: positive: Normal inspection Neck: positive: Nml inspection Respiratory: positive: Other (diminshed) Cardiovascular: positive: Regular rate & rhythm (per tele), Other (distant) Abdomen: positive: Tenderness (RUQ per RN) Skin: positive: Color nml Extremities: positive: Other (not following commands) Neurologic/Psychiatric: negative: Oriented x3 Sepsis Event Note (H) - Evaluation Current Stage of Sepsis: Severe sepsis Conclusion/Plan - Problem List (1) Hyperkalemia Conclusion/Plan: ARF + IV contrast for CTA + hyperKalemia 8.5 and no Kayxalate available. recommend transfer STAT unless comfort care. continue with temporizing measures of calcium gluconate and insulin and glucose per ED staff. spoke with pharmacist in charge to call back if family changes patient to comfort care status. unclear code status. tele hospitalist spoke ad nauseum with daughter and son and made full code. ED subsequently spoke to family and report DNR/DNI. will defer to ED staff (2) Sepsis Conclusion/Plan: unclear source. UTI vs Resp. empiric abx. followup cultures. pressors support. Qualifiers: Sepsis type: sepsis due to unspecified organism Sepsis acute organ dysfunction status: with acute organ dysfunction Severe sepsis acute organ dysfunction type: acute renal failure Acute renal failure type: unspecified Severe sepsis shock status: with septic shock Qualified Code(s): A41.9 - Sepsis, unspecified organism; R65.21 - Severe sepsis with septic shock; N17.9 - Acute kidney failure, unspecified - Lab Results Lab results reviewed: Yes Ed Bones: 11/22/22 00:08 11/22/22 01:45 - Diagnostic Imaging Results Diagnostic Imaging Results Comments: reviewed. Core Measures - Anticipated LOS I expect patient to be DC'd or transferred within 96 hours.: No - Issues Hospital Issues and Management Plan: The patient consented to receive this telemedicine service, which I performed via live two-way audiovisual equipment. The patient is at ([facility]) and I am physically in [facility]. A nurse assisted me in the visit. - DVT/VTE - Prophylaxis VTE/DVT Device ordered at admit?: Yes Telemedicine Consult Details - Provider Location & Consult Time Telemedicine consultation conducted via videoconferencing?: Yes List names and roles of persons who participated in consult:: RN. ED. daughter Telemedicine provider location:: [facility] Time Telemedicine consult began:: 02:50 Time Telemedicine consult completed:: 04:10
[2022-11-22] MEDS ORDERED: SODIUM CHLORIDE 0.9% 1,000 ML IV SCH (04:00)
[2022-11-22] MEDS ORDERED: SODIUM BICARBONATE 150 MEQ in DEXTROSE 5% 1,000 ML IV SCH (04:00)
[2022-11-22] MEDS ORDERED: FUROSEMIDE 40 MG/4 ML VIAL IVP STA (04:22)
[2022-11-22] MEDS ORDERED: MORPHINE 2 MG/ML CARPUJECT IVP PRN (04:48)
[2022-11-22] MEDS ORDERED: MORPHINE 2 MG/ML CARPUJECT IVP STA ×2 (04:49→05:09)
[2022-11-22] MEDS ORDERED: MORPHINE 2 MG/ML CARPUJECT ONE (06:28)
[2022-11-22 06:38] VITALS: BP 59/47
[2022-11-22] MEDS ORDERED: HEPARIN 5,000 UNIT/ML VIAL SUBQ SCH (09:00)
[2022-11-22] MEDS ORDERED: SODIUM CHLORIDE FLUSH 0.9% 10 ML SYRINGE IVP SCH (09:00)
== END 2022-11-22 06:58 | disposition expired ==
LOC: EDUNIT# → ED 23:53 → ICU 11-22 03:08 → UNDOADMIN 11-22 03:08 → ED 11-22 06:58
DX: A41.9 Sepsis, unspecified organism (principal); R65.21 Severe sepsis with septic shock; N17.9 Acute kidney failure, unspecified; D72.829 Elevated white blood cell count, unspecified; E87.5 Hyperkalemia; R06.02 Shortness of breath; I11.0 Hypertensive heart disease with heart failure; I50.9 Heart failure, unspecified; E11.9 Type 2 diabetes mellitus without complications; Z66 Do not resuscitate; Z20.822 Contact with and (suspected) exposure to COVID-19; Z79.82 Long term (current) use of aspirin; Z79.899 Other long term (current) drug therapy; Z79.84 Long term (current) use of oral hypoglycemic drugs
CPT/HCPCS: 36415; 36556; 36600; 71275; 74177; 80053; 81001; 82803; 83605; 83690; 83880; 84132; 84484; 85025; 85610; 85730; 87040; 87635; 93005; 94640; 96365; 96366; 96368; 96375; 96376; 99291; 99292; J1815; J3370; Q9967; 80048; 81003; 87086